=== PATIENT | male | born 1980 | race Caucasian/White ===

== ENCOUNTER 2016-09-30 15:00 | Inpatient (IN) | payer OTHER ==
[~2016-09-30] VITALS: Ht 180.3 cm; Wt 69.4 kg
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
--- NOTE | ~2016-09-30 | PN ---
Unit #: [id number] #: [id number] Patient: LESLIE CALLAHAN [id number] [facility] [address] [place] [address] [id number] MR#: [id number] NAME: LESLIE CALLAHAN ROOM: P174 Age: 36 Sex: M Admission Date: 09/30/2016 : 1980 Attending Physician: Darron Fuentes M.D. Admitting Physician: Darron Fuentes M.D. Primary Care Physician: Generic Doctor Not In System [facility] PROGRESS NOTES DATE October 03, 2016 DISCUSSION Mr. Callahan is a 36-year-old white male, who was seen today and chart was reviewed and the case was discussed with the staff. He has been doing fairly well and has been showing improvement in mood and anxiety, and seems to be functioning. He has been cooperative with the treatment recommendations and he has been taking medications and tolerating them fairly well with no reported side effects. MENTAL STATUS EXAMINATION Young white male, who was casually dressed with fair personal hygiene and appears to be in no acute distress or discomfort. He was awake and alert on interaction with intact orientation. His mood is anxious with a congruent affect. He denies any suicidal or homicidal ideations. His insight and judgment remain slightly impaired. TREATMENT PLAN 1. We will continue him on his current treatment protocol, and will monitor his response to the medications, and make further adjustments as needed. 2. We will continue to followup. Dictated by... Sarah Paulino/reece TD: 10/04/2016 07:25 JOB #: [id number] Unit #: [id number] #: [id number] Patient: LESLIE CALLAHAN [facility] PROGRESS NOTES Page 1 of 1 X Darron Fuentes MD PROGRESS NOTE
--- NOTE | ~2016-09-30 | A ---
[facility] DATE: 10/02/16 Patient: LESLIE ATKINS Physician: AFAIRF Address: [address] Room/Bed: [address], Zip: [place] [address] Admit Date: 09/30/16 Date of : [birth year] Height: 5 11 Weight: [id number] NUTRITIONAL ASSESSMENT: REASON: NUTRITIONAL RISK POINT PATIENT ADMITTED FOR SI AND DEPRESSION PMH: NONE Anthropometrics: HT: 71", WT: 153#, BMI: 21.3, %IBW: 89 Labs: 10/01/16- ALL NUTRITIONAL LABS WNL Meds: CELEXA DESYREL Assessment: PATIENT IS A 36 Y/O MALE ADMITTED FOR SI AND DEPRESSION. PATIENT IS CURRENTLY UNEMPLOYED, HOMELESS, SMOKES 1/2 PPD, AND HAS A HX OF FREQUENT MARIJUANA USE WITH NO RECENT SUBSTANCE ABUSE. UPOM ADMIT PATIENT STATED A GOOD APPETITE WITH 10# WEIGHT LOSS X SEVERAL MONTHS. NURSING REPORTS FIAR-GOOD PO INTAKES. PATIENT DOES NOT HAVE ANY HX OF INPATIENT OR OUTPATIENT PSYCH TREATMENTS. CURRENT PSYCH MEDS MAY CAUSE FLUCTUATIONS IN WEIGHT AND APPETITE. THERE ARE NO SKIN OR GI ISSUES NOTED ATT. PATIENT IS ON A REGULAR DIET. PATIENT'S BMI IS WITHIN A HEALTHY RANGE AND ALL OF HIS NUTRITION LABS WERE WNL Dx: UNINTENTIONAL WEIGHT LOSS R/T CURRENT CONDITION, DEPRESSION AEB SELF-REPORTED WEIGHT LOSS AND DECREASED APPETITE, NUTRITIONAL RISK POINT Intervention: REGULAR DIET, MEDS PER MD, PSYCH Monitoring, Evaluation and Goals: 1. ADEQUATE PO INTAKES >50% OF MEALS 2. PREVENT, CORRECT MICRO/MACRO NUTRIENT DEFICIENCIES 3. WEIGHT; PREVENT FURTHER WEIGHT LOSS MONITOR; WEIGHTS, LABS, PO/FLUID INTAKES Recommendations: 1. CONTINUE REGULAR DIET TOLERATED 2. ENCOURAGE ADEQUATE PO AND FLUID INTAKES RD TO F/U PER PROTOCOL AND PRN R/T PATIENT MILDLY COMPROMISED [facility] DATE: 10/02/16 Patient: LESLIE ATKINS Physician: DEVONAIRF Address: [address] Room/Bed: [address], Zip: [place] [address] Admit Date: 09/30/16 Date of : [birth year] Height: 5 11 Weight: [phone] Respectfully, MARCO A SNOW RD, LD [facility] cc: client file
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
--- NOTE | ~2016-09-30 | PN ---
Unit #: [id number] #: [id number] Patient: LESLIE CALLAHAN [id number] [facility] [address] [place] [address] [id number] I MR#: [id number] NAME: LESLIE CALLAHAN ROOM: P174 Age: 36 Sex: M Admission Date: 09/30/2016 : 1980 Attending Physician: Darron Fuentes M.D. Admitting Physician: Darron Fuentes M.D. Primary Care Physician: Generic Doctor Not In System [facility] PROGRESS NOTES DATE OF SERVICE: 10/02/2016 SUBJECTIVE Mr. Callahan is a 36-year-old white male, who was seen today and chart was reviewed, and case was discussed with the staff. He has been anxious, withdrawn, and rather seclusive to himself, though he reports doing fairly well and has been taking medications and tolerating them fairly well with no reported side effects. MENTAL STATUS EXAMINATION Young white male who was casually dressed with fair personal hygiene, appears to be in no acute distress or discomfort. He was awake and alert with intact orientation. His mood was anxious with a congruent affect. He denies any suicidal or homicidal ideations. His insight and judgment remain slightly impaired. TREATMENT PLAN 1. We will continue on his current medications and treatment protocol. We will monitor his response to the medications and make further adjustments as needed. 2. We will continue to follow up. Dictated by... Sarah Paulino/talia TD: 10/02/2016 08:05 JOB #: [id number] [facility] PROGRESS NOTES Page 1 of 1 X Darron Fuentes MD PROGRESS NOTE
--- NOTE | ~2016-09-30 | DS ---
Unit #: [id number] #: [id number] Patient: LESLIE CALLAHAN [id number] [facility] [place] [address] [id number] I MR#: [id number] NAME: LESLIE CALLAHAN ROOM: [facility] Age: 36 Sex: M Admission Date: 09/30/2016 : 1980 Discharge Date: Attending Physician: Darron Fuentes M.D. Primary Care Physician: Generic Doctor Not In System DISCHARGE SUMMARY IDENTIFYING DATA Mr. Callahan is a 36-year-old single white male, who was self-referred to the hospital. DISCHARGE DIAGNOSES Psychiatric: Major depressive disorder, recurrent, moderate, without psychotic features; cannabis abuse, moderate. Medical: None. Stressors: Mild psychosocial stressors. HISTORY OF PRESENT ILLNESS Please see initial psychiatric evaluation for details. PAST PSYCHIATRIC HISTORY Please see initial psychiatric evaluation for details. PAST MEDICAL HISTORY Please see initial psychiatric evaluation for details. HOSPITAL COURSE The patient was admitted to the adult chemical dependency and psychiatric unit at [facility] and was oriented to the hospital environment. Routine p.r.n. medications were initiated, and he was started back on his home medications and Celexa was also initiated to help with depressive symptoms. He was taking the medications regularly and was tolerating them fairly well and was able to show a decent and therapeutic response and was willing to continue treatment on an outpatient basis and was denying any suicidal ideations, intent, or plan and as such, it was decided that he will be discharged home and will continue treatment on an outpatient basis. DISCHARGE MEDICATIONS Celexa 20 mg a day for depression. DISCHARGE CONDITION Stable. PROGNOSIS Fair. Dictated by... Darron Fuentes M.D. IAA/modl Unit #: [id number] #: [id number] Patient: LESLIE CALLAHAN TD: 10/04/2016 07:40 JOB #: [id number] DISCHARGE SUMMARY Page 1 of 1 X Darron Fuentes MD X DISCHARGE SUMMARY
[2016-10-01 09:39] LABS: BASOPHIL% 0.4 % (0-2.5); EOSINOPHIL# 0.1 X10e3 (0-0.7); EOSINOPHIL% 2.3 % (0.0-7.0); HEMATOCRIT 42.6 % (38.0-50.0); HEMOGLOBIN 14.1 gm/dL (13.0-16.0); LYMPHOCYTE# 2.6 X10e3 (1.0-3.5); LYMPHOCYTE% 39.5 % (17.0-45.0); MEAN CELL VOLUME 89.6 FL (83-96); MEAN CORPUSCULAR HEMOGLOBIN 29.7 PG (28-34); MEAN CORPUSCULAR HGB CONC 33.2 g/dL (30-36); MEAN PLATELET VOLUME 8.5 FL (6.5-11.5); MONOCYTE# 0.8 X10e3 (0-1.0); MONOCYTE% 12.6 % (3.0-12.0); NEUTROPHIL# 2.9 X10e3 (1.5-7.1); NEUTROPHIL% 45.2 % (40-75); PLATELET COUNT 232 X10e3 (140-420); RED BLOOD COUNT 4.75 X10e (3.90-5.60); RED CELL DISTRIBUTION WIDTH 13.3 % (11.0-15.5); WHITE BLOOD COUNT 6.5 X10e3 (4.0-10.5)
[2016-10-01 09:50] LABS: DIFF IND NO
[2016-10-01 10:34] LABS: ALBUMIN SERUM 4.3 g/dL (3.5-5.0); BILIRUBIN,TOTAL 0.8 mg/dL (0.2-2.0); BUN/CREATININE RATIO 16.25; CALCIUM SERUM 9.4 mg/dL (8.4-10.2); CREATININE SERUM 0.8 mg/dL (0.6-1.4); POTASSIUM 4.5 mmol/L (3.5-5.1); PROTEIN TOTAL SERUM 6.8 g/dL (6.0-8.3)
[2016-10-02 09:44] LABS: URINE APPEARANCE CLEAR; URINE BILIRUBIN NEG (NEG); URINE BLOOD NEG (NEG); URINE COLOR YELLOW; URINE GLUCOSE NEG (NEG); URINE KETONE NEG (NEG); URINE LEUKOCYTE ESTERASE TRACE (NEG); URINE NITRATE NEG (NEG); URINE PH 7.5 (5-8); URINE PROTEIN NEG (NEG); URINE SPECIFIC GRAVITY 1.012 (1.003-1.035); URINE UROBILINOGEN 0.2 MG/DL (NEG)
[2016-10-02 09:48] LABS: URBCS1 AUWI 0-2 /[HPF] (0-2); URINE BACTERIA AUWI NEG (NEGATIVE); URINE SQUAMOUS EPITHELIAL CELL NONE SEEN /[HPF]
[2016-10-02 10:59] LABS: AMPHETAMINE NEG (NEG); BARBITURATES NEG (NEG); BENZODIAZEPINES NEG (NEG); COCAINE NEG (NEG); MARIJUANA POS (NEG); OPIATES NEG (NEG); TRICYCLIC ANTIDEPRESSANTS NEG (NEG); U METHADONE NEG (NEG)
== END 2016-10-04 10:00 | DRG 885 ==
LOC: P1E 18:03
PROVIDERS: Psychiatry & Neurology Psychiatry
PROC: HZ2ZZZZ Detoxification Services for Substance Abuse Treatment (ICD-10-PCS; principal; 2016-09-30)
DX: F33.1 Major depressive disorder, recurrent, moderate (principal); R45.851 Suicidal ideations; F12.20 Cannabis dependence, uncomplicated; Z59.0 Homelessness
CPT/HCPCS: 80053; 80307; 81003; 85025